=== PATIENT | female | born 1985 | race Two or more races ===

== ENCOUNTER 2016-10-05 03:37 | Inpatient (IN) | payer OTHER, MEDICARE ==
[~2016-10-05] VITALS: Ht 167.6 cm; Wt 101.9 kg
[2016-10-05] MEDS ORDERED: LORazepam 2 MG/ML VIAL IM PRN ×2 (07:00→16:00)
[2016-10-05] MEDS ORDERED: ACETAMINOPHEN 325 MG TAB PO PRN ×3 (07:00→16:00)
[2016-10-05] MEDS ORDERED: LORazepam 1 MG TAB PO PRN ×2 (07:00→16:00)
[2016-10-05] MEDS ORDERED: MAGNESIUM HYDROXIDE SUSP 30 ML CUP PO PRN ×3 (07:00→16:00)
[2016-10-05] MEDS ORDERED: ALUMINUM/MAGNESIUM/SIMETH 30 ML CUP PO PRN ×3 (07:00→16:00)
[2016-10-05 07:31] VITALS: BP 127/69; PULSE 64; RESP 20; TEMP 98.6; O2SAT 98
[2016-10-05] MEDS ORDERED: diphenhydrAMINE HCL 50 MG CAP PO PRN (12:15)
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
[2016-10-05] MEDS ORDERED: LORazepam 0.5 MG TAB age > 65 yrs PO PRN (16:00)
[2016-10-05] MEDS ORDERED: LORazepam 2 MG/ML VIAL - age > 65 yrs IM PRN (16:00)
[2016-10-05] MEDS: NICOTINE 21 MG/24 HR PATCH T-DERMAL SCH (16:41)
[2016-10-05] MEDS: hydrOXYzine HCL 50 MG TAB PO PRN (18:44)
[2016-10-05 19:54] VITALS: BP 127/69; PULSE 64; RESP 20; TEMP 98.6; O2SAT 98
[2016-10-05] MEDS: REMOVE OLD NICOTINE PATCH T-DERMAL SCH (21:00)
[2016-10-05] MEDS: QUEtiapine FUMARATE 200 MG TAB PO SCH (21:54)
[2016-10-06 06:12] VITALS: BP 122/70; PULSE 109; RESP 18; TEMP 98.2; O2SAT 96
[2016-10-06 07:20] LABS: AUTOMATED NEUTROPHIL # 5.8 TH/MM3 (1.8-7.7); BASOPHIL % 0.5 % (0.0-2.0); EOSINOPHIL # 0.2 TH/MM3 (0-0.4); EOSINOPHIL % 2.1 % (0.0-4.0); HEMATOCRIT 38.3 % (35.0-46.0); HEMO FLAGS DIFF FINAL; LYMPH % 34.1 % (9.0-44.0); LYMPHOCYTE # 3.5 TH/MM3 (1.0-4.8); MEAN CELL VOLUME 84.2 FL (80.0-100.0); MEAN CORPUSCULAR HEMOGLOBIN 28.4 PG (27.0-34.0); MEAN CORPUSCULAR HGB CONC 33.8 % (32.0-36.0); MONO % 6.5 % (0.0-8.0); NEUT % 56.8 % (16.0-70.0); PLATELET COUNT 259 TH/MM3 (150-450); RED BLOOD COUNT 4.55 MIL/MM3 (4.00-5.30); WHITE BLOOD COUNT 10.2 TH/MM3 (4.0-11.0)
[2016-10-06 07:47] LABS: ANION GAP 9 MEQ/L (5-15); AST (GOT) 22 U/L (15-37); BLOOD UREA NITROGEN 6 MG/DL (7-18); CHLORIDE 106 MEQ/L (98-107); GLOMERULAR FILTRATION RATE 75 ML/MIN (>89); POTASSIUM 3.4 MEQ/L (3.5-5.1); SODIUM (NA) 141 MEQ/L (136-145)
[2016-10-06 07:57] LABS: ALKALINE PHOSPHATASE 94 U/L (45-117); ALT (GPT) 21 U/L (10-53); FREE T4 1.29 NG/DL (0.76-1.46); TOTAL BILIRUBIN ADULT 0.6 MG/DL (0.2-1.0)
[2016-10-06] MEDS: NICOTINE 21 MG/24 HR PATCH T-DERMAL SCH (09:00)
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
--- NOTE | 2016-10-06 12:31 | HHI.PYPN ---
Subjective Remarks Patient seen today in [place] with nurse Kate, chart reviewed. Patient remains intrusive labile manipulative markedly irritating, with very poor boundaries. She is quite perseverative deflecting most questions back at the question her. Showing no insight into her issues. However there is also a marked borderline personality disorder flavor to her also. Patient compliant medications. We'll add Seroquel 100 mg at 8 AM and 2 PM, continue the at bedtime dose no change Review of Systems Except as stated in HPI: all other systems reviewed are Neg Objective Alert: Yes [place]: Person, Place Mood: Agitated, Anxious, Calm, Other (markedly manipulative) Affect: Labile Memory Intact: Comment (poor) Hallucinations: Other (denies) Delusions: No Delusion Type: Other (somewhat vigilant) Suicidal: Ideation (is vague but denies) Homicidal: Ideation (is vague but denies) Insight/Judgment Poor Labs Test 10/06/16 06:42 White Blood Count 10.2 TH/MM3 Red Blood Count 4.55 MIL/MM3 Hemoglobin 12.9 GM/DL Hematocrit 38.3 % Mean Corpuscular Volume 84.2 FL Mean Corpuscular Hemoglobin 28.4 PG Mean Corpuscular Hemoglobin 33.8 % Concent Red Cell Distribution Width 14.0 % Platelet Count 259 TH/MM3 Mean Platelet Volume 8.5 FL Neutrophils (%) (Auto) 56.8 % Lymphocytes (%) (Auto) 34.1 % Monocytes (%) (Auto) 6.5 % Eosinophils (%) (Auto) 2.1 % Basophils (%) (Auto) 0.5 % Neutrophils # (Auto) 5.8 TH/MM3 Lymphocytes # (Auto) 3.5 TH/MM3 Monocytes # (Auto) 0.7 TH/MM3 Eosinophils # (Auto) 0.2 TH/MM3 Basophils # (Auto) 0.0 TH/MM3 CBC Comment DIFF FINAL Differential Comment Sodium Level 141 MEQ/L Potassium Level 3.4 MEQ/L Chloride Level 106 MEQ/L Carbon Dioxide Level 26.0 MEQ/L Anion Gap 9 MEQ/L Blood Urea Nitrogen 6 MG/DL Creatinine 0.87 MG/DL Estimat Glomerular Filtration 75 ML/MIN Rate Random Glucose 81 MG/DL Calcium Level 8.6 MG/DL Total Bilirubin 0.6 MG/DL Aspartate Amino Transf 22 U/L (AST/SGOT) Alanine Aminotransferase 21 U/L (ALT/SGPT) Alkaline Phosphatase 94 U/L Total Protein 7.4 GM/DL Albumin 3.5 GM/DL Free Thyroxine 1.29 NG/DL Thyroid Stimulating Hormone 4.020 uIU/ML 3rd Gen Valproic Acid (Depakene) Level 4 MCG/ML Vitals/IOs Vital Signs Date Time Temp Pulse Resp B/P Pulse Ox O2 Delivery O2 Flow Rate FiO2 10/06/16 06:12 98.2 109 18 122/70 96 Assessment & Plan Problem List: (1) Borderline personality disorder ICD Code: F60.3 (2) Disruptive mood dysregulation disorder ICD Code: F34.81 Assessment & Plan Estimated LOS: days patient continues intrusive labile somewhat paranoid. See medication adjustments above Justification for Cont. Inpt. At this time patient will decompensate if placed in a lower level of care Discharge Planning To be determined Request Surrog/Guard Advoc?: No Larry Hernandez MD Oct 06, 2016 12:31
[2016-10-06] MEDS: QUEtiapine FUMARATE 100 MG TAB PO SCH (14:00)
[2016-10-06] MEDS: REMOVE OLD NICOTINE PATCH T-DERMAL SCH (21:00)
[2016-10-06] MEDS: QUEtiapine FUMARATE 200 MG TAB PO SCH (21:22)
[2016-10-07 06:00] VITALS: BP 133/82; PULSE 75; RESP 18; TEMP 98.4; O2SAT 98
[2016-10-07] MEDS: NICOTINE 21 MG/24 HR PATCH T-DERMAL SCH (09:00)
[2016-10-07] MEDS: REMOVE OLD NICOTINE PATCH T-DERMAL SCH (09:00)
--- NOTE | 2016-10-07 09:24 | HHI.PYPN ---
Subjective Remarks Patient seen in her room with nurse Laura present throughout session. Patient continues irritable angry markedly ingratiating. Responding to every question I asked with "ask my aunt... Ask my aunt" patient then got up and said I'm done in here and left the room. Patient showing mixed compliance with the medication. Staff is also noted her attempting to split staff and patients. Patient scheduled for [facility] tomorrow Review of Systems Except as stated in HPI: all other systems reviewed are Neg Objective Alert: Yes [place]: Person, Place Mood: Agitated, Anxious, Calm, Other (markedly manipulative) Affect: Labile Memory Intact: Comment (poor) Hallucinations: Other (denies) Delusions: No Delusion Type: Other (somewhat vigilant) Suicidal: Ideation (is vague but denies) Homicidal: Ideation (is vague but denies) Insight/Judgment Very poor Vitals/IOs Vital Signs Date Time Temp Pulse Resp B/P Pulse Ox O2 Delivery O2 Flow Rate FiO2 10/07/16 06:00 98.4 75 18 133/82 98 Assessment & Plan Problem List: (1) Borderline personality disorder ICD Code: F60.3 (2) Disruptive mood dysregulation disorder ICD Code: F34.81 Assessment & Plan Estimated LOS: days patient remains irritable demanding manipulative and ingratiating, with mixed compliance medication. Patient scheduled for [facility] tomorrow Justification for Cont. Inpt. At this time patient will decompensate if placed a lower level of care Discharge Planning To be determined Request HC Surrog/Guard Advoc?: No Larry Hernandez MD Oct 07, 2016 09:24
[2016-10-07] MEDS ORDERED: HALOPERIDOL LACTATE 5 MG/ML AMP IM ONE (12:15)
[2016-10-07] MEDS ORDERED: LORazepam 2 MG/ML VIAL IM ONE ×2 (12:15→19:45)
[2016-10-07] MEDS ORDERED: diphenhydrAMINE HCL 50 MG/ML VIAL IM ONE ×2 (12:15→19:45)
[2016-10-07] MEDS: QUEtiapine FUMARATE 100 MG TAB PO SCH (14:00)
[2016-10-07 16:55] VITALS: BP 114/62; PULSE 73; RESP 18; TEMP 98.4; O2SAT 97
[2016-10-07] MEDS ORDERED: OLANZapine IM 10 MG VIAL IM ONE (19:45)
[2016-10-07] MEDS: QUEtiapine FUMARATE 200 MG TAB PO SCH (19:56)
[2016-10-07] MEDS: hydrOXYzine HCL 50 MG TAB PO PRN (21:46)
[2016-10-08 06:02] VITALS: BP 116/63; PULSE 73; RESP 18; TEMP 98; O2SAT 97
[2016-10-08] MEDS: QUEtiapine FUMARATE 100 MG TAB PO SCH ×2 (08:00→14:00)
[2016-10-08] MEDS: NICOTINE 21 MG/24 HR PATCH T-DERMAL SCH (08:39)
[2016-10-08] MEDS: REMOVE OLD NICOTINE PATCH T-DERMAL SCH (08:40)
[2016-10-08] MEDS ORDERED: SERO400T PO (10:48)
[2016-10-08] MEDS ORDERED: QUET1TAB8 PO (10:48)
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
== END 2016-10-08 16:45 | disposition home or self-care (01) | DRG 885 ==
LOC: H260 06:52 → H270 10-07 11:25
PROVIDERS: ADMIT Psychiatry & Neurology Psychiatry; ATTEND Psychiatry & Neurology Psychiatry
DX: F34.81 Disruptive mood dysregulation disorder (principal); F60.3 Borderline personality disorder
CPT/HCPCS: 80053; 80164; 84439; 84443; 85025; J1200; J1630; J2060; Q0163

== ENCOUNTER 2017-05-10 03:05 | Inpatient (IN) | payer OTHER, MEDICAID, MEDICARE ==
[~2017-05-10] VITALS: Ht 170.2 cm; Wt 100.0 kg
[~2017-05-10 03:05] MED LIST: QUET1TAB8 PO; SERO400T PO
[2017-05-10 03:25] VITALS: BP 121/78; PULSE 94; RESP 18; TEMP 98; O2SAT 97
[2017-05-10] MEDS ORDERED: diphenhydrAMINE HCL 50 MG/ML VIAL IM PRN (03:45)
[2017-05-10] MEDS ORDERED: MAGNESIUM HYDROXIDE SUSP 30 ML CUP PO PRN (03:45)
[2017-05-10] MEDS ORDERED: diphenhydrAMINE HCL 50 MG CAP - HS PRN PO (03:45)
[2017-05-10] MEDS ORDERED: diphenhydrAMINE HCL 50 MG CAP PO PRN (03:45)
[2017-05-10] MEDS ORDERED: ALUMINUM/MAGNESIUM/SIMETH 30 ML CUP PO PRN (03:45)
[2017-05-10] MEDS ORDERED: ACETAMINOPHEN 325 MG TAB PO PRN (03:45)
[2017-05-10] MEDS ORDERED: diphenhydrAMINE HCL 50 MG/ML VIAL - HS PRN IM (03:45)
[2017-05-10 04:05] VITALS: BP 121/78; PULSE 94; RESP 18; TEMP 98
[2017-05-10] MEDS ORDERED: HALOPERIDOL LACTATE 5 MG/ML AMP IM ONE (06:00)
[2017-05-10] MEDS ORDERED: LORazepam 2 MG/ML VIAL IM ONE (06:00)
[2017-05-10] MEDS ORDERED: diphenhydrAMINE HCL 50 MG/ML VIAL IM ONE (06:00)
[2017-05-10 06:24] LABS: ANION GAP 8 MEQ/L (5-15); BICARBONATE 28.3 MEQ/L (21.0-32.0); BLOOD UREA NITROGEN 13 MG/DL (7-18); CHLORIDE 103 MEQ/L (98-107); GLOMERULAR FILTRATION RATE 86 ML/MIN (>89); POTASSIUM 3.8 MEQ/L (3.5-5.1); SODIUM (NA) 139 MEQ/L (136-145)
[2017-05-10 06:27] LABS: HDL CHOLESTEROL 58.6 MG/DL (40.0-60.0); LDL CHOLESTEROL 65 MG/DL (0-99)
[2017-05-10] MEDS ORDERED: NICOTINE 21 MG/24 HR PATCH T-DERMAL SCH (09:00)
[2017-05-10] MEDS: THIAMINE HCL 100 MG TAB PO SCH (09:00)
[2017-05-10] MEDS: FOLIC ACID 1 MG TAB PO SCH (09:00)
[2017-05-10] MEDS ORDERED: cloNIDine HCL 0.1 MG TAB PO PRN (09:00)
[2017-05-10] MEDS: MULTIVITAMIN TAB PO SCH (09:00)
--- NOTE | 2017-05-10 09:00 | PD.CONS ---
HPI Service [facility] Consult Requested By DR BLANCO Reason for Consult MEDICAL MANAGEMENT Primary Care Physician No Primary Care Physician Diagnoses: History of Present Illness PATIENT IS A 31 YEAR OLD FEMALE SEEN IN THE PSYCHIATRIC UNIT FOR MEDICAL MANAGEMENT HISTORY IS UNOBTAINABLE FROM PATIENT DUE TO BEING MEDICATED RECENTLY WILL CHECK LABS AND MONITOR Review of Systems ROS Limitations: Altered Mental Status, Psychotic Except as stated in HPI: all other systems reviewed are Neg Past Family Social History Allergies: Coded Allergies: No Known Allergies (Unverified , 10/05/16) Past Medical History POSSIBLE HYPOTHYROIDISM PER CHART REVIEW PSYCHIATRIC DISORDERS Past Surgical History UNKNOWN Reported Medications Reported Meds & Active Scripts Active Quetiapine (Quetiapine Fumarate) 100 Mg Tab 100 Mg PO DAILY@ Seroquel (Quetiapine Fumarate) 400 Mg Tab 400 Mg PO HS Active Ordered Medications Current Medications Hydroxyzine HCl (Atarax) 50 mg Q6H PRN PO ANXIETY; Start 05/10/17 at 03:45; Status Future Hold Diphenhydramine HCl (Benadryl) 50 mg Q6H PRN PO MILD ANXIETY, EPS; Start 05/10 at 03:45; Status Future Hold Diphenhydramine HCl (Benadryl Inj) 50 mg Q6H PRN IM MILD ANXIETY, EPS; Start 05/10/17 at 03:45; Status Future Hold Diphenhydramine HCl (Benadryl) 50 mg HS PRN PO INSOMNIA; Start 05/10/17 at 03: 45; Status Future Hold Diphenhydramine HCl (Benadryl Inj) 50 mg HS PRN IM INSOMNIA; Start 05/10/17 at 03:45; Status Future Hold Acetaminophen (Tylenol) 650 mg Q4H PRN PO Pain 1-5 or Temp >101F; Start at 03:45 Magnesium Hydroxide (Milk Of Magnesia Liq) 30 ml DAILY PRN PO CONSTIPATION; Start 05/10/17 at 03:45 Al Hydrox/Mg Hydrox/Simethicone (Mag-Al Plus Susp Liq) 30 ml Q6H PRN PO DYSPEPSIA; Start 05/10/17 at 03:45 Nicotine (Habitrol 21 Mg Patch.24 Hr) 1 patch DAILY T-DERMAL ; Start 05/10/17 at 09:00; Stop 05/10/17 at 09:00; Status DC Miscellaneous Information 1 HS T-DERMAL ; Start 05/10/17 at 21:00; Stop at 21:00; Status DC Diphenhydramine HCl (Benadryl Inj) 50 mg NOW ONCE IM Last administered on 06:00; Start 05/10/17 at 06:00; Stop 05/10/17 at 06:01; Status DC Lorazepam (Ativan Inj) 2MG [ Medically necessary] NOW ONCE IM Last administered on 05/10/17 06:00; Start 05/10/17 at 06:00; Stop 05/10/17 at 06 :01; Status DC Haloperidol Lactate (Haldol Inj) 10 mg NOW ONCE IM Last administered on 06:00; Start 05/10/17 at 06:00; Stop 05/10/17 at 06:01; Status DC Family History UNOBTAINABLE Social History PROBABLE TOBACCO, POSSIBLE ALCOHOL AND OTHER DRUGS Physical Exam Vital Signs Vital Signs Date Time Temp Pulse Resp B/P (MAP) Pulse Ox O2 Delivery O2 Flow Rate FiO2 05/10/17 04:05 98.0 94 18 121/78 (92) 05/10/17 03:25 98.0 94 18 121/78 (92) 97 Physical Exam GENERAL: This is a well-nourished, well-developed patient, in no apparent distress. QUITE SEDATED AT TIME OF EXAM- SEEN WITH FEMALE KENNEL TECHNICIAN- DISORIENTED AT THIS TIME SKIN: No rashes, ecchymoses or lesions. Cool and dry. HEAD: Atraumatic. Normocephalic. No temporal or scalp tenderness. EYES: Pupils equal round and reactive. Extraocular motions intact. No scleral icterus. No injection or drainage. ENT: Nose without bleeding, purulent drainage or septal hematoma. Throat without erythema, tonsillar hypertrophy or exudate. Uvula midline. Airway patent. NECK: Trachea midline. No JVD or lymphadenopathy. Supple, nontender, no meningeal signs. CARDIOVASCULAR: Regular rate and rhythm without murmurs, gallops, or rubs. RESPIRATORY: Clear to auscultation. Breath sounds equal bilaterally. No wheezes , rales, or rhonchi. GASTROINTESTINAL: Abdomen soft, non-tender, nondistended. No hepato-splenomegaly , or palpable masses. No guarding.OBESE MUSCULOSKELETAL: Extremities without clubbing, cyanosis, or edema. No joint tenderness, effusion, or edema noted. No calf tenderness. Negative Homans sign bilaterally. NEUROLOGICAL: Awake and alert. Cranial nerves II through XII intact. Motor and sensory grossly within normal limits. Five out of 5 muscle strength in all muscle groups. ABNormal speech. INSIGHT AND JUDGEMENT IS LIMITED MOOD AND BEHAVIOR IS INAPPROPRIATE Laboratory Laboratory Tests Test 05/10/17 05:25 Blood Urea Nitrogen 13 Creatinine 0.78 Random Glucose 82 Calcium Level 8.9 Sodium Level 139 Potassium Level 3.8 Chloride Level 103 Carbon Dioxide Level 28.3 Anion Gap 8 Estimat Glomerular Filtration Rate 86 Triglycerides Level 125 Cholesterol Level 149 LDL Cholesterol 65 HDL Cholesterol 58.6 Cholesterol/HDL Ratio 2.54 [place] Level LESS THAN 0.1 Result Diagram: 05/10/17 05 Assessment and Plan Assessment and Plan POSSIBLE HYPOTHYROIDISM WILL CHECK LABS TOBACCO ABUSE- NICODERM- SMOKING CESSATION OBESITY- WEIGHT LOSS LABS PSYCHIATRIC DISORDER- WILL DEFER TO PSYCHIATRY` CONTINUE MVI, THIAMINE, FOLIC ACID Code Status FULL CODE Discussed Condition With RN AND PT-NOT MUCH INPUT FROM PATIENT MiliShineblas Villanueva DO May 10, 2017 09:00
--- NOTE | 2017-05-10 09:02 | HHI.HP ---
Provisional Diagnosis Admission Date May 10, 2017 at 03:26 [place] I. 1. Adjustment disorder with mixed disturbance of emotions and conduct Rule out mood disorder, such as BPAD [place] II. 1. Cluster B personality traits Certification of Person's Competence To Provide Express and Informed Consent I have personally examined Sfoya Thornton , a person being served at [facility] on, May 10, 2017 09:01. Express and informed consent means consent voluntarily given in writing, by a competent person, after sufficient explanation and disclosure of the subject matter involved to enable the person to make a knowing and willful decision without any element of force, fraud, deceit, duress, or other form of constraint or coercion. This person is 18 years of age or older, is not now known to be incompetent to consent to treatment with a guardian advocate, and does not have a health care surrogate or proxy currently making medical treatment decisions. I have found this person to be one of the following: [] Competent to provide express and informed consent, as defined above, for voluntary admission to this facility and is competent to provide express and informed consent for treatment. He/she has the consistent capacity to make well reasoned, willful, and knowing decisions concerning his or her medical or mental health treatment. The person fully and consistently understands the purpose of the admission for examination/placement and is fully capable of personally exercising all rights assured under [place] [] Incompetent to provide express and informed consent to voluntary admission, and this is incompetent to provide express and informed consent to treatment. The person must be transferred to involuntary status and a petition for a guardian advocate filed with the Circuit Court. [x] Refusing to provide express and informed consent to voluntary admission but is competent to provide express and informed consent for treatment. The person must be discharged or transferred to involuntary status. Form shall be completed within 24 hours of a person's arrival at the receiving facility and filed in the clinical record of each person: 1. Admitted on a voluntary basis 2. Permitted to provide express and informed consent to his/her own treatment 3. Allowed to transfer from involuntary to voluntary status 4. Prior to permitting a person to consent to his or her own treatment after having been previously found incompetent to consent to treatment. History of Present Illness Capacity: Has Capacity Psych Chief Complaint: "I was getting dramatic because my uncle won't give me my service animal." HPI Ms. Thornton is a 31 year old female with chart history of borderline PD and DMDD who presents in transfer from [facility] under a [place] Act. Records from [facility] reviewed. Patient apparently presented there stating she was suicidal and that she wanted to burn the city down. Reviewing our EMR, I note the patient was admitted in September of this year under Dr. Hernandez with the above discharge diagnoses. Patient seen and examined with nurse. Chart reviewed. Case discussed with nursing staff. Patient was reportedly verbally abusive toward staff and threatening to self-injure this morning and so was medicated with Haldol, Ativan and Benadryl ETO at Dr. Hernandez's order as the MD automotive collision repair instructor. Consequently when I go to see her ~08:30, she is quite sedated. I return with nurse a while later and find patient more alert. She is presently calm. She explains that she got upset with her uncle with whom she lives, reportedly because he would not give her her service Renettagato Jones. In response, patient maintains "I just walked away and went to the hospital." Patient denies saying that she wanted to burn down the city, saying instead that "I said I wanted to go to [facility]," although it is unclear for what purpose. Affect is irritable. Cluster B personality traits, chiefly Borderline, are noted. She denies any AVH. She is noncommittal when I ask about SI/HI, but she does not verbalize any active SI/HI. I can elicit no paranoia or other delusional material. Psychiatric interview is somewhat limited as patient does remain a little sleepy from her ETO. No physical complaints at this time. Past psychiatric history: When asked about prior psychiatric diagnoses the patient says "I have a lot of history" without reporting any specific diagnoses in the past. She says that she is looking for a new psychiatrist as she feels that her current provider. She reports that she was hospitalized about a week ago at [facility] for being "combative." She denies any history of suicide attempts. With the patient's permission, I did endeavor to obtain collateral information from her Aunt Gloria Umanzor at [phone]. I left generic requesting a call back. Review of Systems ROS Limitations: Poor Historian Except as stated in HPI: all other systems reviewed are Neg Past Psych History Psychological trauma history No reported trauma history to me. Violence risk - others (6 mos) Suspect chronic risk related to cluster B personality style. We will observe on the unit for acute, modifiable risk factors. Violence risk - self (6 mos) Again suspect chronic risk related to cluster B personality style. We will observe on the unit for acute, modifiable risk factors. Substance Abuse History Drugs/Alcohol past 12 months Patient denies any abuse of drugs or alcohol Past Family Social History Coded Allergies: No Known Allergies (Unverified , 10/05/16) Past Medical History See electronic medical record Active Scripts Quetiapine (Quetiapine) 100 Mg Tab, 100 MG PO DAILY@08,14 for health, #7 TAB 0 Refills Prov:Larry Hernandez MD 10/08/16 Quetiapine (Seroquel) 400 Mg Tab, 400 MG PO HS for health, #7 TAB 0 Refills Prov:Larry Hernandez MD 10/08/16 Current Medications Medications (Trade) Dose Ordered Sig/Levi Route Start Time Stop Time Status Last Admin (Atarax) 50 mg Q6H PRN PO 05/10/17 03:45 Future Hold (Benadryl) 50 mg Q6H PRN PO 05/10/17 03:45 Future Hold (Benadryl Inj) 50 mg Q6H PRN IM 05/10/17 03:45 Future Hold (Benadryl) 50 mg HS PRN PO 05/10/17 03:45 Future Hold (Benadryl Inj) 50 mg HS PRN IM 05/10/17 03:45 Future Hold (Tylenol) 650 mg Q4H PRN PO 05/10/17 03:45 (Milk Of Magnesia Liq) 30 ml DAILY PRN PO 05/10/17 03:45 (Mag-Al Plus Susp Liq) 30 ml Q6H PRN PO 05/10/17 03:45 Family Psych History Patient reports that her father and both of her grandmothers have some sort of mental illness although she is unsure of the diagnosis. One of her sisters and one of her brothers attempted suicide in the past. Social History Patient reports that she lives with her aunt and uncle. She says that she was previously in a long-term relationship but her boyfriend "went AWOL." She has no children. She denies any history. Denies any legal history. Denies any access to guns or firearms. She has a 12th grade education and receives a disability check in the amount of $639 per month. She is a baptism Yarsanism. Patient's Strengths (min. 2) In a monitored setting. Verbally fluent. Physical Exam Physical examination completed by hospitalist software developer consultant. On my examination today, the patient appears to be in no acute physical distress. Besides mild sedation, there are no sequelae from her ETO. No motor abnormalities noted. Labs and vitals reviewed: Vital Signs Vital Signs Date Time Temp Pulse Resp B/P (MAP) Pulse Ox O2 Delivery O2 Flow Rate FiO2 05/10/17 04:05 98.0 94 18 121/78 (92) 05/10/17 03:25 97 Lab Results Test 05/10/17 05:25 Blood Urea Nitrogen 13 MG/DL Creatinine 0.78 MG/DL Random Glucose 82 MG/DL Calcium Level 8.9 MG/DL Sodium Level 139 MEQ/L Potassium Level 3.8 MEQ/L Chloride Level 103 MEQ/L Carbon Dioxide Level 28.3 MEQ/L Anion Gap 8 MEQ/L Estimat Glomerular Filtration Rate 86 ML/MIN Triglycerides Level 125 MG/DL Cholesterol Level 149 MG/DL LDL Cholesterol 65 MG/DL HDL Cholesterol 58.6 MG/DL Cholesterol/HDL Ratio 2.54 RATIO [place] Level LESS THAN 0.1 MEQ/L Labs from outside hospital reviewed: Urinalysis reveals 1+ leukocyte esterase but no pyuria Urine toxicology negative CBC reveals white blood cell count of 12.0 CMP reveals mild hyperglycemia at 102 and a nonfasting sample Alcohol level undetectable Tylenol and salicylate levels undetectable Serum beta hCG negative Mental Status Examination Appearance: Disheveled Consciousness: Other (sleepy but arousable) Orientation: Person, Place (at least) Motor Activity: Other (motor exam as above) Speech: Unremarkable (not slurred) Language: Adequate Fund of Knowledge: Adequate Attention and Concentration: Adequate Memory: Unremarkable Mood: Other (no reported issues with mood) Affect: Irritable (mild) Thought Process & Associations: Logical, Linear Thought Content: Appropriate Hallucination Type: None Delusion Type: None Suicidal Ideation: No (No SI voiced) Homicidal Ideation: No (No HI voiced) Insight: Poor Judgment: Poor Assessment & Plan Problem List: (1) Adjustment disorder with mixed disturbance of emotions and conduct ICD Codes: F43.25 - Adjustment disorder with mixed disturbance of emotions and conduct (2) Cluster B personality traits Assessment & Plan Patient is a 31-year-old female with psychiatric history as noted above who presents in transfer from outside hospital under a [place] act. On my evaluation today, the patient denies the allegations in the [place] act and says that she presented to outside hospital because she was upset with her uncle when he wouldn't give her her service dog. I do perceive a not insignificant cluster B personality problem at play here, and this may be the totality of the diagnosis. However, since she required an ETO this morning I will plan to observe the patient on the unit under the [employer] Act for any modifiable impairments in safety. Admit inpatient. Continue to observe under [employer] act. Patient has capacity to consent for medications. I will resume the Seroquel 100/100/400 mg prescribed to her during her hospitalization in September. I have additionally asked the nurse to obtain an up-to-date medication list from her pharmacy. Ativan as needed for anxiety. Hospitalist input ordered by Dr. Hernandez; input appreciated. Check a TSH. Vitals every shift. Counselor to see and obtain collateral. Disposition planning. Estimated length of stay: 2-3 days. Discharge Planning Pending outcome of observation Request HC Surrog/Guard Advoc?: No Naga Casey MD May 10, 2017 09:02
[2017-05-10] MEDS ORDERED: LORazepam 2 MG/ML VIAL IM PRN (12:15)
[2017-05-10] MEDS ORDERED: LORazepam 1 MG TAB PO PRN (12:15)
[2017-05-10 13:11] LABS: ALT (GPT) 30 U/L (10-53); AST (GOT) 21 U/L (15-37); MAGNESIUM 2.3 MG/DL (1.5-2.5)
[2017-05-10 13:21] LABS: ALKALINE PHOSPHATASE 97 U/L (45-117); FREE T4 0.84 NG/DL (0.76-1.46); TOTAL BILIRUBIN ADULT 0.2 MG/DL (0.2-1.0)
[2017-05-10 13:23] LABS: AUTOMATED NEUTROPHIL # 8.8 TH/MM3 (1.8-7.7); BASOPHIL # 0.1 TH/MM3 (0-0.2); BASOPHIL % 0.7 % (0.0-2.0); EOSINOPHIL # 0.3 TH/MM3 (0-0.4); EOSINOPHIL % 2.1 % (0.0-4.0); HEMATOCRIT 41.3 % (35.0-46.0); HEMO FLAGS DIFF FINAL; LYMPH % 25.2 % (9.0-44.0); LYMPHOCYTE # 3.5 TH/MM3 (1.0-4.8); MEAN CELL VOLUME 87.2 FL (80.0-100.0); MEAN CORPUSCULAR HEMOGLOBIN 28.5 PG (27.0-34.0); MEAN CORPUSCULAR HGB CONC 32.7 % (32.0-36.0); MONO % 7.8 % (0.0-8.0); NEUT % 64.2 % (16.0-70.0); PLATELET COUNT 321 TH/MM3 (150-450); RED BLOOD COUNT 4.74 MIL/MM3 (4.00-5.30); WHITE BLOOD COUNT 13.7 TH/MM3 (4.0-11.0)
[2017-05-10] MEDS ORDERED: QUEtiapine FUMARATE 100 MG TAB PO SCH (14:00)
[2017-05-10] MEDS: EMTRICITABINE/TENOFOVIR 200 MG/300 MG TAB PO SCH (17:38)
[2017-05-10] MEDS: LITHIUM CARBONATE 450 MG CONTROLLED RELEASE TAB PO SCH (17:39)
[2017-05-10 17:41] LABS: HEMOGLOBIN A1a 0.6 %; HEMOGLOBIN A1b 1.7 %; HEMOGLOBIN Ao 86.5 %; HEMOGLOBIN LA1C 1.8 %; HEMOGLOBIN P3 3.4 %
[2017-05-10] MEDS ORDERED: QUEtiapine FUMARATE 200 MG TAB PO SCH (21:00)
[2017-05-10] MEDS ORDERED: REMOVE OLD NICOTINE PATCH T-DERMAL SCH (21:00)
[2017-05-10] MEDS ORDERED: PILL SPLITTER OTHER PRN (21:00)
[2017-05-10 21:10] VITALS: BP_SYST 110; BP_SYST 113; BP_SYST 116; BP_DIAS 57; BP_DIAS 58; BP_DIAS 66; PULSE 66
[2017-05-10] MEDS: carBAMazepine 200 MG TAB PO SCH (21:29)
[2017-05-10] MEDS: busPIRone HCL 5 MG TAB PO SCH (21:29)
[2017-05-11 05:34] VITALS: BP 122/55; PULSE 77; RESP 18; TEMP 98.8; O2SAT 98
[2017-05-11] MEDS ORDERED: LEVOTHYROXINE SODIUM 25 MCG TAB PO ONE (08:45)
[2017-05-11] MEDS: LITHIUM CARBONATE 450 MG CONTROLLED RELEASE TAB PO SCH ×2 (08:47→17:39)
[2017-05-11] MEDS: FOLIC ACID 1 MG TAB PO SCH (08:47)
[2017-05-11] MEDS: busPIRone HCL 5 MG TAB PO SCH ×2 (08:47→20:13)
[2017-05-11] MEDS: THIAMINE HCL 100 MG TAB PO SCH (08:48)
[2017-05-11] MEDS: carBAMazepine 200 MG TAB PO SCH ×2 (08:48→20:13)
[2017-05-11] MEDS: MULTIVITAMIN TAB PO SCH (08:48)
[2017-05-11] MEDS: EMTRICITABINE/TENOFOVIR 200 MG/300 MG TAB PO SCH (08:48)
[2017-05-11] MEDS ORDERED: SAPHRIS 10 MG PO SCH (09:00)
--- NOTE | 2017-05-11 10:28 | HHI.PR ---
Subjective Remarks PATIENT IS A 31 YEAR OLD FEMALE SEEN IN THE PS[facility]CHIATRIC UNIT FOR MEDICAL MANAGEMENT HISTORY IS UNOBTAINABLE FROM PATIENT DUE TO BEING MEDICATED RECENTLY WILL CHECK LABS AND MONITOR 05-11 REFUSING ALL MEDS STARTED ON SYNTHROID REFUSING TO TALK TO ME WILL SIGN OFF Objective Vitals Vital Signs Date Time Temp Pulse Resp B/P (MAP) Pulse Ox O2 Delivery O2 Flow Rate FiO2 05/11/17 05:34 98.8 77 18 122/55 (77) 98 05/10/17 21:10 66 116/58 (77) 110/57 (74) 113/66 (82) Result Diagram: 05/10/1725 05/10/17524 Other Results Laboratory Tests Test 05/10/17 05:25 White Blood Count 13.7 TH/MM3 Red Blood Count 4.74 MIL/MM3 Hemoglobin 13.5 GM/DL Hematocrit 41.3 % Mean Corpuscular Volume 87.2 FL Mean Corpuscular Hemoglobin 28.5 PG Mean Corpuscular Hemoglobin Concent 32.7 % Red Cell Distribution Width 14.0 % Platelet Count 321 TH/MM3 Mean Platelet Volume 8.7 FL Neutrophils (%) (Auto) 64.2 % Lymphocytes (%) (Auto) 25.2 % Monocytes (%) (Auto) 7.8 % Eosinophils (%) (Auto) 2.1 % Basophils (%) (Auto) 0.7 % Neutrophils # (Auto) 8.8 TH/MM3 Lymphocytes # (Auto) 3.5 TH/MM3 Monocytes # (Auto) 1.1 TH/MM3 Eosinophils # (Auto) 0.3 TH/MM3 Basophils # (Auto) 0.1 TH/MM3 CBC Comment DIFF FINAL Differential Comment Blood Urea Nitrogen 13 MG/DL Creatinine 0.78 MG/DL Random Glucose 82 MG/DL Total Protein 8.1 GM/DL Albumin 3.8 GM/DL Calcium Level 8.9 MG/DL Phosphorus Level 3.7 MG/DL Magnesium Level 2.3 MG/DL Alkaline Phosphatase 97 U/L Aspartate Amino Transf (AST/SGOT) 21 U/L Alanine Aminotransferase (ALT/SGPT) 30 U/L Total Bilirubin 0.2 MG/DL Sodium Level 139 MEQ/L Potassium Level 3.8 MEQ/L Chloride Level 103 MEQ/L Carbon Dioxide Level 28.3 MEQ/L Anion Gap 8 MEQ/L Estimat Glomerular Filtration Rate 86 ML/MIN Hemoglobin A1c 5.2 % Triglycerides Level 125 MG/DL Cholesterol Level 149 MG/DL LDL Cholesterol 65 MG/DL HDL Cholesterol 58.6 MG/DL Cholesterol/HDL Ratio 2.54 RATIO Free Thyroxine 0.84 NG/DL Thyroid Stimulating Hormone 3rd Gen 4.760 uIU/ML Carbamazepine (Tegretol) Level 1.4 MCG/ML [place] Level LESS THAN 0.1 MEQ/L Objective Remarks GENERAL: AWAKE AND ALERT AND PSYCHOTIC SKIN: Warm and dry. HEAD: Atraumatic. Normocephalic. EYES: Pupils equal and round. No scleral icterus. No injection or drainage. ENT: No nasal bleeding or discharge. Mucous membranes pink and moist. NECK: Trachea midline. No JVD. CARDIOVASCULAR: Regular rate and rhythm. S1, S2 NO S3 OR S4 RESPIRATORY: No accessory muscle use. Clear to auscultation. Breath sounds equal bilaterally. GASTROINTESTINAL: Abdomen soft, non-tender, nondistended. Hepatic and splenic margins not palpable. MUSCULOSKELETAL: Extremities without clubbing, cyanosis, or edema. No obvious deformities. NEUROLOGICAL: Awake and alert. No obvious cranial nerve deficits. Motor grossly within normal limits. Five out of 5 muscle strength in the arms and legs. ABNormal speech. PSYCHIATRIC: INAppropriate mood and affect; insight and judgment ABnormal. Medications and IVs Current Medications Hydroxyzine HCl (Atarax) 50 mg Q6H PRN PO ANXIETY; Start 05/10/17 at 03:45; Status Future hold Diphenhydramine HCl (Benadryl) 50 mg Q6H PRN PO MILD ANXIETY, EPS; Start 05/10 at 03:45; Status Future hold Diphenhydramine HCl (Benadryl Inj) 50 mg Q6H PRN IM MILD ANXIETY, EPS; Start 05/10/17 at 03:45; Status Future hold Diphenhydramine HCl (Benadryl) 50 mg HS PRN PO INSOMNIA; Start 05/10/17 at 03: 45; Status Future hold Diphenhydramine HCl (Benadryl Inj) 50 mg HS PRN IM INSOMNIA; Start 05/10/17 at 03:45; Stop 05/10/17 at 12:33; Status DC Acetaminophen (Tylenol) 650 mg Q4H PRN PO Pain 1-5 or Temp >101F; Start at 03:45 Magnesium Hydroxide (Milk Of Magnesia Liq) 30 ml DAILY PRN PO CONSTIPATION; Start 05/10/17 at 03:45 Al Hydrox/Mg Hydrox/Simethicone (Mag-Al Plus Susp Liq) 30 ml Q6H PRN PO DYSPEPSIA; Start 05/10/17 at 03:45 Nicotine (Habitrol 21 Mg Patch.24 Hr) 1 patch DAILY T-DERMAL ; Start 05/10/17 at 09:00; Stop 05/10/17 at 09:00; Status DC Miscellaneous Information 1 HS T-DERMAL ; Start 05/10/17 at 21:00; Stop at 21:00; Status DC Diphenhydramine HCl (Benadryl Inj) 50 mg NOW ONCE IM Last administered on 06:00; Start 05/10/17 at 06:00; Stop 05/10/17 at 06:01; Status DC Lorazepam (Ativan Inj) 2MG [ Medically necessary] NOW ONCE IM Last administered on 05/10/17 06:00; Start 05/10/17 at 06:00; Stop 05/10/17 at 06 :01; Status DC Haloperidol Lactate (Haldol Inj) 10 mg NOW ONCE IM Last administered on 06:00; Start 05/10/17 at 06:00; Stop 05/10/17 at 06:01; Status DC Multivitamins (Theragran) 1 tab DAILY PO ; Start 05/10/17 at 09:00 Thiamine HCl (Vitamin B1) 100 mg DAILY PO ; Start 05/10/17 at 09:00 Folic Acid (Folate) 1 mg DAILY PO ; Start 05/10/17 at 09:00 Clonidine (Catapres) 0.1 mg Q4H PRN PO SBP>160, DBP>90; Start 05/10/17 at 09: 00 Quetiapine Fumarate (SEROquel) 100 mg DAILY@08,14 PO ; Start 05/10/17 at 14:00 ; Stop 05/10/17 at 14:00; Status DC Quetiapine Fumarate (SEROquel) 400 mg HS PO ; Start 05/10/17 at 21:00; Stop at 21:00; Status DC Lorazepam (Ativan) 1 mg Q6H PRN PO ANXIETY; Start 05/10/17 at 12:15; Stop at 12:33; Status DC Lorazepam (Ativan Inj) 1 mg Q6H PRN IM ANXIETY, unable to take PO; Start 05/10 at 12:15; Stop 05/10/17 at 12:33; Status DC Emtricitabine/ Tenofovir (Truvada 200-300 Mg) 1 tab DAILY PO Last administered on 05/10/17 17:38; Start 05/10/17 at 15:00 [place] Carbonate (Eskalith Sr) 450 mg BIDPC PO Last administered on 08:47; Start 05/10/17 at 18:00 Buspirone HCl (Buspar) 7.5 mg Q12HR PO Last administered on 05/10/17 21:29; Start 05/10/17 at 21:00 Carbamazepine (TEGretol) 200 mg Q12HR PO Last administered on 05/10/17 21:29 ; Start 05/10/17 at 21:00 Patient Own Medication Saphris 10mg, 2 t... DAILY PO ; Start 05/11/17 at 09:00 ; Status Future Hold Miscellaneous (Pill Splitter) 1 ea UNSCH PRN OTHER SEE LABEL COMMENTS; Start 05/10/17 at 21:00 Levothyroxine Sodium (Synthroid) 25 mcg DAILY@0600 PO ; Start 05/12/17 at 06:00 Levothyroxine Sodium (Synthroid) 25 mcg ONCE ONCE PO ; Start 05/11/17 at 08:45 ; Stop 05/11/17 at 08:46; Status DC A/P Assessment and Plan POSSIBLE HYPOTHYROIDISM WILL CHECK LABS--ADD SYNTHROID 25MCG PO DAILY TOBACCO ABUSE- NICODERM- SMOKING CESSATION OBESITY- WEIGHT LOSS LABS PSYCHIATRIC DISORDER- WILL DEFER TO PSYCHIATRY` CONTINUE MVI, THIAMINE, FOLIC ACID REFUSING ALL MEDS Shine Garces DO May 11, 2017 10:28
--- NOTE | 2017-05-11 11:00 | HHI.PYPN ---
Subjective Chief Complaint: "I was getting dramatic because my uncle won't give me my service animal." Remarks Patient seen and examined with nurse. Chart reviewed. Case discussed with nursing staff and in treatment team. Nursing staff reports patient was complaining of dizziness overnight, although she was not orthostatic by BP and has had no further complaints of dizziness this morning. On my exam, patient presents as childlike with prominent borderline personality traits. It is possible she has some degree of intellectual disability. She is oppositional, demanding and dictating of care. She is somewhat intrusive. She denies any SI or HI. I can elicit no delusional material. She denies AVH. She is refusing her medications other than lithium, and when I ask her about this refusal, she tells me that she does not take anything but lithium, and in particular she says she does not take CBZ. This seems unlikely as she had a detectable if low CBZ level. Review of Systems ROS Limitations: Uncooperative, Poor Historian Except as stated in HPI: all other systems reviewed are Neg Mental Status Examination Appearance: Appropriate Consciousness: Alert Orientation: Person, Place Motor Activity: Other (no abnormal motor movements noted) Speech: Unremarkable Language: Adequate Fund of Knowledge: Adequate, Inadequate Attention and Concentration: Easily Distracted Mood: Other (mildly dysphoric) Affect: Irritable (mild) Thought Process & Associations: Intact Thought Content: Appropriate Hallucination Type: None Delusion Type: None Suicidal Ideation: No Homicidal Ideation: No Insight: Poor Judgment: Poor Results Labs Item Value Date Time White Blood Count 13.7 TH/MM3 H 05/10/17 0525 Hemoglobin 13.5 GM/DL 05/10/17 0525 Platelet Count 321 TH/MM3 05/10/17 0525 Thyroid Stimulating Hormone 3rd Gen 4.760 uIU/ML H 05/10/17 0525 Free Thyroxine 0.84 NG/DL 05/10/17 0525 Carbamazepine (Tegretol) Level 1.4 MCG/ML L 05/10/17 0525 Labs reviewed. Mild leukocytosis without obvious signs or symptoms of infection. TFTs within normal limits. Carbamazepine level low but not undetectable. Vitals/IOs Vital Signs Date Time Temp Pulse Resp B/P (MAP) Pulse Ox O2 Delivery O2 Flow Rate FiO2 05/11/17 05:34 98.8 77 18 122/55 (98) 98 Assessment & Plan Problem List: (1) Adjustment disorder with mixed disturbance of emotions and conduct ICD Codes: F43.25 - Adjustment disorder with mixed disturbance of emotions and conduct (2) Borderline personality disorder ICD Codes: F60.3 - Borderline personality disorder Status: Acute Assessment & Plan Presentation seems most consistent with Borderline personality style perhaps overlying some degree of intellectual disability. Patient is quite behavioral, and I suspect this stems from [place] issues. Counselor has been in contact with Aunt who will come to see patient tonight for possible discharge tomorrow. Aunt is reportedly requesting patient be given something for sleep, although it appears patient is sleeping fairly well here. She has Benadryl PRN insomnia ordered. Continue to offer medications as reported by her outpatient pharmacy. Continue to monitor on the inpatient unit. Hospitalist input noted and appreciated; patient has been medically cleared for discharge by the hospitalist. Continue other medications and care as ordered. Justification for Cont. Inpt. Monitoring for impairments in safety. Discharge Planning Anticipate discharge tomorrow, Wednesday Request HC Surrog/Guard Advoc?: No Naga Casey MD May 11, 2017 11:00
--- NOTE | 2017-05-11 14:26 | PD.TTN ---
Patient Problems 1. Discharge planning 2. Medication compliance 3. Knowledge deficit 4. Lack of coping skills Progress Toward Goals Provider Present: Dr. Aisha Casey Provider Input: Pt medication regiment will not be adjusted today. It is believed that personality disorder is a significant part of pt presentation. She will be considered for discharge in the short term and family will be contacted by counselor. Nurse(s) Present: Ras Seth RN Nurse(s) Input: Pt has been refusing his medication regiment, has been no behavioral issues and appears childlike. Psychiatric Counselors Present: MARIPOSA Elkins Psych Therapist Input: Pt appears loud, demanding, disruptive, cooperative, organized, oriented and childlike. Pt presents with limited insight into condition and need for care. She has been noncompliant with medication regiment. She is visible on unit and demanding of staff. She presents with limited coping and emotional regulation skills. Group Spec/RT/OT/ESPINO Present: KENZIE James Group Spec/RT/OT/ESPINO Input: Pt appears uncooperative, childlike and isolates to her room. Discharge Plan Other Pt will be discharged back to aunt's home and will continue to follow up with provider she has been established with, [facility]. Documentation Scribe: MARIPOSA Elkins Jonathan LMHC May 11, 2017 14:25
[2017-05-11] MEDS ORDERED: diphenhydrAMINE HCL 50 MG/ML VIAL IM STA (14:47)
[2017-05-11] MEDS ORDERED: LORazepam 2 MG/ML VIAL IM STA (14:47)
[2017-05-11] MEDS ORDERED: HALOPERIDOL LACTATE 5 MG/ML AMP IM STA (14:47)
[2017-05-11] MEDS: hydrOXYzine HCL 50 MG TAB PO PRN (20:13)
[2017-05-12 05:26] VITALS: BP 118/64; PULSE 72; RESP 18; TEMP 98.3; O2SAT 99
[2017-05-12] MEDS: LEVOTHYROXINE SODIUM 25 MCG TAB PO SCH (06:40)
[2017-05-12] MEDS: MULTIVITAMIN TAB PO SCH (08:32)
[2017-05-12] MEDS: LITHIUM CARBONATE 450 MG CONTROLLED RELEASE TAB PO SCH ×2 (08:32→18:00)
[2017-05-12] MEDS: THIAMINE HCL 100 MG TAB PO SCH (08:33)
[2017-05-12] MEDS: busPIRone HCL 5 MG TAB PO SCH ×2 (08:33→21:19)
[2017-05-12] MEDS: FOLIC ACID 1 MG TAB PO SCH (08:33)
[2017-05-12] MEDS: EMTRICITABINE/TENOFOVIR 200 MG/300 MG TAB PO SCH (08:33)
[2017-05-12] MEDS: carBAMazepine 200 MG TAB PO SCH (08:33)
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
[2017-05-12 18:18] VITALS: BP 132/70; PULSE 86; RESP 18; TEMP 97.2; O2SAT 98
[2017-05-12] MEDS: HALOPERIDOL 5 MG TAB PO SCH (21:18)
[2017-05-12] MEDS: traZODone HCL 50 MG TAB PO SCH (21:18)
[2017-05-12] MEDS: BENZTROPINE MESYLATE 1 MG TAB PO SCH (21:18)
[2017-05-13 05:43] VITALS: BP 109/58; PULSE 70; RESP 16; TEMP 98.2; O2SAT 99
[2017-05-13] MEDS: LEVOTHYROXINE SODIUM 25 MCG TAB PO SCH (06:05)
--- NOTE | 2017-05-13 08:23 | HHI.PYPN ---
Subjective Chief Complaint: "I was getting dramatic because my uncle won't give me my service animal." Remarks Patient seen with nurse know what, in coverage for Dr. Casey as of today, chart review, patient showing mixed compliance medications. Patient is feeling down in her bed in her room demanding irritable manipulative. Demanding her medications. Saying she has a "personality disorder". For now continue treatment Review of Systems Except as stated in HPI: all other systems reviewed are Neg Mental Status Examination Appearance: Appropriate Consciousness: Alert Orientation: Person, Place (at least) Motor Activity: Other (no motoric abnormalities noted) Speech: Unremarkable Language: Adequate Fund of Knowledge: Adequate (fair) Attention and Concentration: Adequate Memory: Unremarkable (seems fair on clinical exam) Mood: Other (mildly dysphoric) Affect: Irritable Thought Process & Associations: Intact Thought Content: Appropriate Hallucination Type: None Delusion Type: None Suicidal Ideation: No Homicidal Ideation: No Insight: Poor Judgment: Poor Results Vitals/IOs Vital Signs Date Time Temp Pulse Resp B/P (MAP) Pulse Ox O2 Delivery O2 Flow Rate FiO2 05/13/17 05:43 98.2 70 16 109/58 (75) 99 Assessment & Plan Problem List: (1) Adjustment disorder with mixed disturbance of emotions and conduct ICD Codes: F43.25 - Adjustment disorder with mixed disturbance of emotions and conduct (2) Borderline personality disorder ICD Codes: F60.3 - Borderline personality disorder Status: Acute Assessment & Plan Estimated LOS: days patient continues markedly manipulative demanding irritable confrontational, though with mixed compliance with medications for now continue treatment Justification for Cont. Inpt. At this time patient will decompensate is placed in a lower level of care Discharge Planning Placement may become somewhat complicated Request HC Surrog/Guard Advoc?: No Larry Hernandez MD May 13, 2017 08:23
[2017-05-13] MEDS: BENZTROPINE MESYLATE 1 MG TAB PO SCH ×2 (08:38→20:24)
[2017-05-13] MEDS: LITHIUM CARBONATE 450 MG CONTROLLED RELEASE TAB PO SCH ×2 (08:38→17:25)
[2017-05-13] MEDS: busPIRone HCL 5 MG TAB PO SCH ×2 (08:38→20:24)
[2017-05-13] MEDS: FOLIC ACID 1 MG TAB PO SCH (08:39)
[2017-05-13] MEDS: HALOPERIDOL 5 MG TAB PO SCH ×2 (08:39→20:24)
[2017-05-13] MEDS: EMTRICITABINE/TENOFOVIR 200 MG/300 MG TAB PO SCH (08:39)
[2017-05-13] MEDS: MULTIVITAMIN TAB PO SCH (08:39)
[2017-05-13] MEDS: THIAMINE HCL 100 MG TAB PO SCH (08:40)
[2017-05-13 17:18] VITALS: BP 101/49; PULSE 71; RESP 18; TEMP 98; O2SAT 98
[2017-05-13] MEDS: traZODone HCL 50 MG TAB PO SCH (20:24)
[2017-05-14] MEDS: hydrOXYzine HCL 50 MG TAB PO PRN ×2 (03:12→09:19)
[2017-05-14] MEDS: LEVOTHYROXINE SODIUM 25 MCG TAB PO SCH (06:29)
[2017-05-14] MEDS: FOLIC ACID 1 MG TAB PO SCH (09:19)
[2017-05-14] MEDS: BENZTROPINE MESYLATE 1 MG TAB PO SCH ×2 (09:20→19:49)
[2017-05-14] MEDS: MULTIVITAMIN TAB PO SCH (09:20)
[2017-05-14] MEDS: busPIRone HCL 5 MG TAB PO SCH ×2 (09:20→19:49)
[2017-05-14] MEDS: THIAMINE HCL 100 MG TAB PO SCH (09:20)
[2017-05-14] MEDS: EMTRICITABINE/TENOFOVIR 200 MG/300 MG TAB PO SCH (09:20)
[2017-05-14] MEDS: HALOPERIDOL 5 MG TAB PO SCH ×2 (09:20→19:49)
[2017-05-14] MEDS: LITHIUM CARBONATE 450 MG CONTROLLED RELEASE TAB PO SCH ×3 (09:20→17:39)
[2017-05-14 09:59] LABS: BICARBONATE 22.7 MEQ/L (21.0-32.0); POTASSIUM 3.9 MEQ/L (3.5-5.1)
--- NOTE | 2017-05-14 10:27 | PD.TTN ---
Patient Problems 1. Discharge planning 2. Medication compliance 3. Knowledge deficit 4. Lack of coping skills Progress Toward Goals Provider Present: Dr. Aisha Casey Provider Input: Pt medication regiment will not be adjusted today. It is believed that personality disorder is a significant part of pt presentation. She will be considered for discharge in the short term and family will be contacted by counselor. 05/14 if no major behavioral issues the patient can discharge home today 05/14 considering discharge today Nurse(s) Present: Ras Seth, RN Nurse(s) Input: Pt has been refusing his medication regiment, has been no behavioral issues and appears childlike. 05/14 [place]: patient is med compliant denies suicidal and homicidal ideations but is still hyperverbal and reported inappropritate yesterday at some time but not today Psychiatric Counselors Present: MARIPOSA Elkins, Mariajose Anaya LCSW Psych Therapist Input: Pt appears loud, demanding, disruptive, cooperative, organized, oriented and childlike. Pt presents with limited insight into condition and need for care. She has been noncompliant with medication regiment. She is visible on unit and demanding of staff. She presents with limited coping and emotional regulation skills. 05/14 patient has many behavioral issues but once stable can return to her living situation Group Spec/RT/OT/ESPINO Present: Koffi Lynn OT, KENZIE James Group Spec/RT/OT/ESPINO Input: Pt appears uncooperative, childlike and isolates to her room. 05/14 patient is childlike and manipulative Discharge Plan Patient's choice of Counseling (patient goes to [facility] and has her own apartment close to her aunt's house), Other Pt will be discharged back to aunt's home and will continue to follow up with provider she has been established with, [facility]. Documentation Scribe: MARIPOSA Elkins Verena LCSW May 14, 2017 10:27
--- NOTE | 2017-05-14 13:05 | EKG ---
Date Performed: 05/13/2017 Time Performed: 16:10:05 PTAGE: 31 years EKG: Sinus rhythm WITH SINUS ARRHYTHMIA NORMAL ECG NO PREVIOUS TRACING DOCTOR: Sam Medrano Interpretating Date/Time 05/14/2017 13:03:40
[2017-05-14] MEDS ORDERED: BUSP5TAB PO (13:21)
[2017-05-14] MEDS ORDERED: Benztropine PO (13:21)
[2017-05-14] MEDS ORDERED: HALO5TAB PO (13:21)
[2017-05-14] MEDS ORDERED: TRAZ50TA12 PO (13:21)
[2017-05-14] MEDS ORDERED: LITH450T PO (13:21)
[2017-05-14] MEDS ORDERED: TRUV200300 PO (13:21)
[2017-05-14] MEDS ORDERED: LEVO25TA4 PO (13:21)
--- NOTE | 2017-05-14 13:21 | HHI.DS ---
Psychiatry Discharge Summary Inpatient Psychiatric care?: Yes Advance Directive: No Reason Not Provided: doesnt have. Mental Health AdvanceDirective: No Health Care Proxy: No Admission Admission Date May 10, 2017 at 03:26 Admission Diagnosis: (1) Adjustment disorder with mixed disturbance of emotions and conduct ICD Code: F43.25 - Adjustment disorder with mixed disturbance of emotions and conduct (2) Cluster B personality traits Brief History Ms. Thornton is a 31 year old female with chart history of borderline PD and DMDD who presents in transfer from [facility] under a Oliver Act. Records from [facility] reviewed. Patient apparently presented there stating she was suicidal and that she wanted to burn the city down. Reviewing our EMR, I note the patient was admitted in September of this year under Dr. Hernandez with the above discharge diagnoses. Patient seen and examined with nurse. Chart reviewed. Case discussed with nursing staff. Patient was reportedly verbally abusive toward staff and threatening to self-injure this morning and so was medicated with Haldol, Ativan and Benadryl ETO at Dr. Hernandez's order as the MD manager front. Consequently when I go to see her ~08:30, she is quite sedated. I return with nurse a while later and find patient more alert. She is presently calm. She explains that she got upset with her uncle with whom she lives, reportedly because he would not give her her service [employer]. In response, patient maintains "I just walked away and went to the hospital." Patient denies saying that she wanted to burn down the city, saying instead that "I said I wanted to go to [facility]," although it is unclear for what purpose. Affect is irritable. Cluster B personality traits, chiefly Borderline, are noted. She denies any AVH. She is noncommittal when I ask about SI/HI, but she does not verbalize any active SI/HI. I can elicit no paranoia or other delusional material. Psychiatric interview is somewhat limited as patient does remain a little sleepy from her ETO. No physical complaints at this time. Past psychiatric history: When asked about prior psychiatric diagnoses the patient says "I have a lot of history" without reporting any specific diagnoses in the past. She says that she is looking for a new psychiatrist as she feels that her current provider. She reports that she was hospitalized about a week ago at [facility] for being "combative." She denies any history of suicide attempts. With the patient's permission, I did endeavor to obtain collateral information from her Aunt Gloria Umanzor at [phone]. I left [facility] requesting a call back. Tobacco Use In Past 30 Days: No Tobacco Past 30 Days Alcohol Use: Never Hospital Course Patient was admitted to a locked, inpatient psychiatric unit. A general medical consultation was obtained. Appropriate precautions were in place throughout patient's hospital stay. Patient was seen and examined daily on the unit by psychiatry and also visited by counselor. Psychotropic medications were adjusted. Patient tolerated medications well without side effects. Patient had improvement in presenting psychiatric symptomatology during the course of her hospital stay. Patient's behavior improved with the benefit of psychopharmacologic treatment. There was no evidence of any suicidality or homicidality on the inpatient unit. On the day of discharge: Patient seen and examined with nurse. Chart reviewed. Case discussed with treatment team. Case discussed with nursing staff. No behavioral issues overnight. On my examination today, the patient is calm and cooperative with examination. She is requesting discharge from the inpatient psychiatric unit today. She denies any suicidal or homicidal ideation, intent or plan on direct questioning and contracts for safety. Cluster B personality traits persist. She says "I just have a lot of adult temper tantrums." Mood is stable and I can elicit no depressive or hypomanic/manic symptoms. She denies any audiovisual hallucinations, and I can elicit no delusional material. She denies any side effects from medications. She believes that her current psychotropic regimen is working well and that she has met her goals for this hospitalization. No physical complaints. Weighing the acute, chronic, and protective factors and based on the available evidence, I spragger to a reasonable degree of medical certainty that the patient is at low imminent risk of harm to self or others from a mental illness as defined under the Oliver act and her level of function is adequate for outpatient care. There is likely a component of chronic risk related to her cluster B personality style, but this risk would not be ameliorated by a longer inpatient psychiatric hospital stay. The patient does not meet criteria for involuntary psychiatric hospitalization. She is requesting discharge from the inpatient unit today, and I will arrange for discharge with psychiatric follow-up as arranged by counselor. Patient is also to follow-up with primary care. I counseled patient regarding warning signs for need to return to the psychiatric emergency room as part of general safety plan. Results Blood Pressure 101 / 49 Vital Signs Date Time Temp Pulse Resp B/P (MAP) Pulse Ox O2 Delivery O2 Flow Rate FiO2 05/13/17 17:18 98.0 71 18 101/49 (66) 98 Laboratory Tests Test 05/14/17 08:05 05/14/17 09:05 Creatinine 1.02 MG/DL (0.50-1.00) Random Glucose 122 MG/DL (74-106) Sodium Level 135 MEQ/L (136-145) Estimat Glomerular Filtration Rate 63 ML/MIN (>89) Hamler Level 0.3 MEQ/L (0.5-1.5) Laboratory Results Test 05/10/17 05:25 05/14/17 09:05 Cholesterol Level 149 MG/DL (120-200) HDL Cholesterol 58.6 MG/DL (40.0-60.0) Hemoglobin A1c 5.2 % (4.3-6.0) LDL Cholesterol 65 MG/DL (0-99) Triglycerides Level 125 MG/DL (42-150) Hamler Level 0.3 MEQ/L (0.5-1.5) Summary of Major Lab Results Labs reviewed. GFR somewhat decreased; I will order follow up BMP in a week. Hamler level sub-therapeutic but patient is doing well clinically; I will order follow up lithium level in 1 week. Also check follow up CBC, although I suspect presenting leukocytosis is benign neutrophilia related to lithium treatment as the patient has no signs or symptoms of infection. Also check follow-up TSH although free T4 was within normal limits this hospitalization. EKG reviewed sinus rhythm with QTC of 375 ms. Summary of Procedures None done Imaging Last Impressions Head CT 05/12/17 0000 Signed Impressions: Service Date/Time: Friday, May 12, 2017 13:47 - CONCLUSION: 1. No acute intracranial abnormality. Omi Jo MD Pending results at discharge: No Medications # of Antipsychotic meds at D/C: 1 Approp Antipsych med options 1 - Minimum of three failed multiple trials of monotherapy. 2 - Documented plan to taper to monotherapy due to previous use of multiple meds OR cross-taper in progress at D/C. 3 - Documentation of augmentation of Clozapine. 4 - Justification other than those listed in allowable values 1-3, document here : Discharge Discharge Date: May 14, 2017 Discharge Diagnosis: (1) Adjustment disorder with mixed disturbance of emotions and conduct Diagnosis: Principal (resolved) ICD Code: F43.25 - Adjustment disorder with mixed disturbance of emotions and conduct (2) Cluster B personality traits Diagnosis: Secondary Pt Condition on Discharge: Stable Discharge Disposition: Discharge Home Discharge Instructions Diet Instructions: As Tolerated, No Restrictions Activities you can perform: Weight Bearing as Shahbaz Scheduled Appointment: as per counselor's notes New Orders: BASIC METABOLIC PROF - 1 Week CBC NO DIFF - 1 Week LITHIUM (LI) - 1 Week TSH 3RD GEN - 6 Weeks New Medications: Buspirone (Buspirone) 5 Mg Tab 7.5 MG PO Q12HR for Mental Health for 15 Days, TAB 1 Refill Emtricitabine-Tenofovir Disoproxil Fumarate (Truvada) 200-300 Mg Tab 1 TAB PO DAILY for Health for 15 Days, #15 TAB 1 Refill Haloperidol (Haloperidol) 5 Mg Tab 5 MG PO BID for Mental Health for 15 Days, #30 TAB 1 Refill Levothyroxine (Levothyroxine) 25 Mcg Tab 25 MCG PO DAILY@0600 for Thyroid for 15 Days, TAB 1 Refill Hamler Carbonate ER (Hamler Carbonate ER) 450 Mg Tab 450 MG PO BIDPC for Mental Health for 15 Days, TAB 1 Refill Trazodone (Trazodone) 50 Mg Tab 50 MG PO HS for Sleep for 15 Days, TAB 1 Refill [Benztropine] () 1 MG TAB 1 MG PO BID for Side effect management for 15 Days, 1 Refill Discontinued Medications: Quetiapine (Seroquel) 400 Mg Tab 400 MG PO HS for health, #7 TAB 0 Refills Quetiapine (Quetiapine) 100 Mg Tab 100 MG PO DAILY@08,14 for health, #7 TAB 0 Refills Discharge Time <= 30 minutes Mental Status Examination Appearance: Appropriate Consciousness: Alert Orientation: x4 Motor Activity: Other (no abnormal motor movements noted) Speech: Unremarkable Language: Adequate Fund of Knowledge: Adequate (fair) Attention and Concentration: Adequate Memory: Unremarkable (at least fair on clinical exam) Mood: Appropriate, Good Affect: Appropriate Thought Process & Associations: Intact, Logical, Goal directed, Linear Thought Content: Appropriate Hallucination Type: None Delusion Type: None Suicidal Ideation: No Suicidal Plan: No Suicidal Intention: No Homicidal Ideation: No Homicidal Plan: No Homicidal Intention: No Insight: Fair Judgment: Adequate (fair at best) Discharge/Advance Care Plan Health Problems: (1) Adjustment disorder with mixed disturbance of emotions and conduct (2) Borderline personality disorder Goals to promote your health * To prevent worsening of your condition and complications * To maintain your health at the optimal level Directions to meet your goals Take your medications as prescribed Follow your dietary instruction Follow activity as directed Keep your appointments as scheduled Take your immunizations and boosters as scheduled If your symptoms worsen call your PCP, if no PCP go to Urgent Care Center or Emergency Room For 11/01 questions related to your inpatient stay or results of tests pending at discharge, please contact Dr. Naga Casey at Smoking is Dangerous to Your Health. Avoid second hand smoking Naga Casey MD May 14, 2017 13:21
[2017-05-14] MEDS: traZODone HCL 50 MG TAB PO SCH (19:50)
== END 2017-05-14 19:52 | disposition home or self-care (01) | DRG 882 ==
LOC: H270 03:26
PROVIDERS: ADMIT Psychiatry & Neurology Psychiatry; ATTEND Psychiatry & Neurology Psychiatry
DX: F43.25 Adjustment disorder with mixed disturbance of emotions and conduct (principal); F34.81 Disruptive mood dysregulation disorder; F60.3 Borderline personality disorder; Z72.0 Tobacco use; Z79.899 Other long term (current) drug therapy; E66.9 Obesity, unspecified
CPT/HCPCS: 70450; 80048; 80053; 80061; 80156; 80178; 83036; 83735; 84100; 84439; 84443; 85025; 93005; J1200; J1630; J2060; Q0163